=== PATIENT | female | born 1995 | race Caucasian/White ===

== ENCOUNTER 2024-05-01 10:27 | Emergency (ER) | payer BC ==
[~2024-05-01] VITALS: Ht 152.4 cm; Wt 63.5 kg
[~2024-05-01 10:27] MED LIST: WARF-57 PO
[2024-05-01 11:01] LABS: BASOPHILS # (AUTO) 0.02 K/uL (0.00-0.20); BASOPHILS % (AUTO) 0.5 % (0.0-5.0); EOSINOPHILS # (AUTO) 0.49 K/uL (0.00-0.70); EOSINOPHILS % (AUTO) 11.2 % (0.0-8.0); HEMATOCRIT 41.5 % (36-48); IMMATURE GRANULOCYTE ABSOLUTE 0.01 K/uL (0-1); LYMPHOCYTES # (AUTO) 1.2 K/uL (1.0-4.8); LYMPHOCYTES % (AUTO) 27.9 % (21.0-51.0); MEAN CORPUSCULAR HEMOGLOBIN 29.5 pg (27.0-33.0); MEAN CORPUSCULAR HGB CONC 33.7 g/dL (32.0-36.0); MEAN CORPUSCULAR VOLUME 87.6 fL (79-99); MONOCYTES # (AUTO) 0.5 K/uL (0.1-1.0); NEUTROPHILS # (AUTO) 2.2 K/uL (1.8-7.7); NEUTROPHILS % (AUTO) 49.2 % (40.0-77.0); PLATELET COUNT (AUTO) 256 K/uL (130-400); RED BLOOD CELL COUNT(AUTO) 4.74 MIL/uL (4.00-5.50); RED CELL DISTRIBUTION WIDTH 12.2 % (11.0-15.5); WHITE BLOOD COUNT (AUTO) 4.4 K/uL (4.8-10.8)
[2024-05-01 11:17] LABS: CREATININE 0.7 mg/dL (0.5-1.0); POTASSIUM 4.1 mmol/L (3.5-5.1)
[2024-05-01 11:56] LABS: PARTIAL THROMBOPLASTIN TIME 66.1 SEC (26.3-35.5)
[2024-05-01 12:27] LABS: INR 6.95 (0.85-1.15)
[2024-05-01 13:48] VITALS: BP 146/86; PULSE 88; RESP 16; O2SAT 97
== END 2024-05-01 13:49 | disposition home or self-care (01) ==
LOC: EDH 10:27
DX: R04.0 Epistaxis (principal); T45.515A Adverse effect of anticoagulants, initial encounter; Z88.1 Allergy status to other antibiotic agents; Z95.2 Presence of prosthetic heart valve; Y92.89 Other specified places as the place of occurrence of the external cause; Z98.890 Other specified postprocedural states
CPT/HCPCS: 36415; 80048; 85025; 85610; 85730

== ENCOUNTER 2024-05-30 06:44 | Day surgery (SDC) | payer BC ==
[2024-05-28 11:22] LABS: BASOPHILS # (AUTO) 0.03 K/uL (0.00-0.20); BASOPHILS % (AUTO) 0.6 % (0.0-5.0); EOSINOPHILS # (AUTO) 0.83 K/uL (0.00-0.70); EOSINOPHILS % (AUTO) 17.7 % (0.0-8.0); HEMATOCRIT 40.7 % (36-48); IMMATURE GRANULOCYTE ABSOLUTE 0.01 K/uL (0-1); LYMPHOCYTES # (AUTO) 1.1 K/uL (1.0-4.8); LYMPHOCYTES % (AUTO) 23.1 % (21.0-51.0); MEAN CORPUSCULAR HEMOGLOBIN 29.2 pg (27.0-33.0); MEAN CORPUSCULAR HGB CONC 32.7 g/dL (32.0-36.0); MEAN CORPUSCULAR VOLUME 89.3 fL (79-99); MONOCYTES # (AUTO) 0.3 K/uL (0.1-1.0); MONOCYTES % (AUTO) 6.8 % (3.0-13.0); NEUTROPHILS # (AUTO) 2.4 K/uL (1.8-7.7); NEUTROPHILS % (AUTO) 51.6 % (40.0-77.0); PLATELET COUNT (AUTO) 236 K/uL (130-400); RED BLOOD CELL COUNT(AUTO) 4.56 MIL/uL (4.00-5.50); RED CELL DISTRIBUTION WIDTH 12.9 % (11.0-15.5); WHITE BLOOD COUNT (AUTO) 4.7 K/uL (4.8-10.8)
[2024-05-28 11:43] LABS: INR 1.81 (0.85-1.15); PROTHROMBIN TIME 18.7 SEC (9.6-11.6)
[2024-05-28 11:44] LABS: PARTIAL THROMBOPLASTIN TIME 36.4 SEC (26.3-35.5)
[2024-05-28 12:52] VITALS: BP 126/83; PULSE 71; RESP 19
[~2024-05-30] VITALS: Ht 152.4 cm; Wt 64.5 kg
[2024-05-30] VITALS (17 sets, daily range): BP systolic 113–135; BP diastolic 76–86; PULSE 78–106; RESP 14–18
[~2024-05-30 06:44] MED LIST changes: +ALBU1.252 IH; -WARF-57 PO; +WARF2.5T85 PO
[2024-05-30] MEDS ORDERED: PROPOFOL 10 MG/ML 20ML VIAL IV ONE (07:27)
[2024-05-30] MEDS ORDERED: MIDAZOLAM HCL 1 MG/ML 2ML VIAL ONE (07:27)
[2024-05-30] MEDS ORDERED: ONDANSETRON 4MG INJ ONE (07:27)
[2024-05-30] MEDS ORDERED: ROCURONIUM BROMIDE 10MG/1ML 5ML VL ONE (07:28)
[2024-05-30] MEDS ORDERED: FENTANYL CITRATE PF 50 MCG/1 ML 2ML VIAL ONE (07:28)
[2024-05-30 07:38] LABS: INR 1.61 (0.85-1.15); PROTHROMBIN TIME 16.8 SEC (9.6-11.6)
[2024-05-30 07:40] LABS: PARTIAL THROMBOPLASTIN TIME 34.3 SEC (26.3-35.5)
[2024-05-30] MEDS ORDERED: KETAMINE 50MG/ML SYRINGE 50 MG/ML DISP.SYRIN ONE (07:40)
[2024-05-30] MEDS ORDERED: FERRIC SUBSULFATE ML ONE (07:41)
[2024-05-30] MEDS ORDERED: STRONG IODINE SOLN 14ML BOTTLE ONE (07:42)
[2024-05-30] MEDS ORDERED: VASOPRESSIN 20 UNITS/ML 1ML VIAL ONE (07:42)
[2024-05-30] MEDS ORDERED: LIDOCAINE 1%-EPI 1:100,000 20 ML VIAL ONE ×2 (07:42→08:11)
[2024-05-30] MEDS ORDERED: PHENYLEPHRINE HCL 10 MG/ML 1ML VIAL IV ONE (07:55)
[2024-05-30] MEDS ORDERED: DEXAMETHASONE SOD PHOSPHATE 10MG/ML 1ML VIAL ONE (08:08)
[2024-05-30] MEDS: LIDOCAINE 1%-EPI 1:100,000 20 ML VIAL IJ ONE (08:12)
[2024-05-30] MEDS ORDERED: NEOSTIGMINE METHYLSULFATE 1MG/ML IV ONE (08:24)
[2024-05-30] MEDS ORDERED: GLYCOPYRROLATE 0.2 MG/ML 5 ML VIAL ONE (08:24)
[2024-05-30] MEDS: LACTATED RINGERS 1000ML 1,000 ML IV ONE (08:35)
[2024-05-30] MEDS ORDERED: SUGAMMADEX SODIUM 200 MG/2 ML VIAL IV ONE (08:42)
== END 2024-05-30 10:25 | disposition home or self-care (01) ==
LOC: DAH 06:44
PROVIDERS: ATTEND Obstetrics & Gynecology
DX: R87.613 High grade squamous intraepithelial lesion on cytologic smear of cervix (HGSIL) (principal); N72 Inflammatory disease of cervix uteri; Z79.01 Long term (current) use of anticoagulants; J45.909 Unspecified asthma, uncomplicated; Z88.1 Allergy status to other antibiotic agents; Z79.899 Other long term (current) drug therapy
CPT/HCPCS: 84703; 85025; 85610 ×2; 85730 ×2; 36415 ×2; 57520; 88305; 88307; A6260; A4663 ×2; J7120; J3010; J3490 ×7; J1100; J2250; J2704; J2405; J2710; J2371; A4215; A4657; A4222; A4221; A4216; A4223 ×2

== ENCOUNTER 2024-06-07 15:10 | Emergency (ER) | payer BC ==
[~2024-06-07] VITALS: Ht 152.4 cm; Wt 64.0 kg
[2024-06-07 16:18] LABS: HEMATOCRIT 40.3 % (36-48); MEAN CORPUSCULAR HEMOGLOBIN 29.5 pg (27.0-33.0); MEAN CORPUSCULAR HGB CONC 33.3 g/dL (32.0-36.0); MEAN CORPUSCULAR VOLUME 88.8 fL (79-99); PLATELET COUNT (AUTO) 256 K/uL (130-400); RED BLOOD CELL COUNT(AUTO) 4.54 MIL/uL (4.00-5.50); RED CELL DISTRIBUTION WIDTH 12.5 % (11.0-15.5); WHITE BLOOD COUNT (AUTO) 7.2 K/uL (4.8-10.8)
[2024-06-07 16:22] LABS: BASOPHILS # (AUTO) 0.04 K/uL (0.00-0.20); BASOPHILS % (AUTO) 0.6 % (0.0-5.0); EOSINOPHILS # (AUTO) 0.43 K/uL (0.00-0.70); IMMATURE GRANULOCYTE ABSOLUTE 0.03 K/uL (0-1); LYMPHOCYTES # (AUTO) 0.4 K/uL (1.0-4.8); LYMPHOCYTES % (AUTO) 5.5 % (21.0-51.0); MONOCYTES # (AUTO) 0.8 K/uL (0.1-1.0); MONOCYTES % (AUTO) 11.5 % (3.0-13.0); NEUTROPHILS # (AUTO) 5.4 K/uL (1.8-7.7)
[2024-06-07] MEDS: acetaMINOPHEN 500 MG TABLET PO ONE (17:21)
[2024-06-07] MEDS: 0.9%NACL 1000ML 1,000 ML IV ONE (17:52)
[2024-06-07 18:09] VITALS: TEMP 99.4
[2024-06-07 19:30] VITALS: BP 122/67; PULSE 108; RESP 20; O2SAT 100
== END 2024-06-07 19:31 | disposition home or self-care (01) ==
LOC: EDH 15:10
DX: N93.9 Abnormal uterine and vaginal bleeding, unspecified (principal); J45.909 Unspecified asthma, uncomplicated; Z79.899 Other long term (current) drug therapy; Z88.1 Allergy status to other antibiotic agents; Z88.8 Allergy status to other drugs, medicaments and biological substances; Z98.890 Other specified postprocedural states
CPT/HCPCS: 99283; 85025; 86850; 86900; 86901; 86923; 36415; J7030

== ENCOUNTER 2024-06-12 06:29 | Observation (INO) | payer BC ==
[~2024-06-12] VITALS: Ht 172.7 cm; Wt 63.5 kg
[2024-06-12] VITALS (25 sets, daily range): BP systolic 89–127; BP diastolic 45–85; PULSE 17–135; RESP 15–20; TEMP 97.3–98.4; O2SAT 99
[2024-06-12 06:52] LABS: BASOPHILS # (AUTO) 0.03 K/uL (0.00-0.20); BASOPHILS % (AUTO) 0.2 % (0.0-5.0); EOSINOPHILS # (AUTO) 0.08 K/uL (0.00-0.70); EOSINOPHILS % (AUTO) 0.6 % (0.0-8.0); HEMATOCRIT 31.3 % (36-48); IMMATURE GRANULOCYTE ABSOLUTE 0.08 K/uL (0-1); LYMPHOCYTES # (AUTO) 1.5 K/uL (1.0-4.8); LYMPHOCYTES % (AUTO) 10.2 % (21.0-51.0); MEAN CORPUSCULAR HEMOGLOBIN 30.2 pg (27.0-33.0); MEAN CORPUSCULAR HGB CONC 33.9 g/dL (32.0-36.0); MEAN CORPUSCULAR VOLUME 89.2 fL (79-99); MONOCYTES # (AUTO) 0.8 K/uL (0.1-1.0); MONOCYTES % (AUTO) 5.3 % (3.0-13.0); NEUTROPHILS % (AUTO) 83.1 % (40.0-77.0); PLATELET COUNT (AUTO) 329 K/uL (130-400); RED BLOOD CELL COUNT(AUTO) 3.51 MIL/uL (4.00-5.50); RED CELL DISTRIBUTION WIDTH 12.7 % (11.0-15.5); WHITE BLOOD COUNT (AUTO) 14.5 K/uL (4.8-10.8)
[2024-06-12] MEDS: LACTATED RINGERS 1000ML 1,000 ML IV SCH ×2 (07:00)
[2024-06-12 07:07] LABS: ALBUMIN 3.5 g/dL (3.5-5.0); BILIRUBIN,TOTAL 0.5 mg/dL (0.2-1.0); TOTAL PROTEIN, SERUM 7.3 g/dL (6.0-8.3)
[2024-06-12 07:20] LABS: INR 2.54 (0.85-1.15); PROTHROMBIN TIME 25.6 SEC (9.6-11.6)
[2024-06-12] MEDS ORDERED: LIDOCAINE PF 100MG/5ML (2%) SYRINGE 5ML ONE (08:15)
[2024-06-12] MEDS ORDERED: dexaMETHasone SOD PHOSPHATE 10MG/ML 1ML VIAL ONE (08:15)
[2024-06-12] MEDS ORDERED: proPOFol 10 MG/ML 20ML VIAL IV ONE (08:16)
[2024-06-12] MEDS ORDERED: SUCCINYLCHOLINE CHLORIDE 20 MG/ML 10 ML VIAL ONE (08:16)
[2024-06-12] MEDS ORDERED: GLYCOPYRROLATE 0.2 MG/ML 5 ML VIAL ONE (08:16)
[2024-06-12] MEDS ORDERED: rocuRONium bROMide 10MG/1ML 5ML VL ONE (08:16)
[2024-06-12] MEDS ORDERED: NEOSTIGMINE METHYLSULFATE 1MG/ML IV ONE (08:16)
[2024-06-12] MEDS ORDERED: ONDANSETRON 4MG INJ ONE (08:16)
[2024-06-12] MEDS ORDERED: MIDAZOLAM HCL 1 MG/ML 2ML VIAL ONE (08:16)
[2024-06-12] MEDS ORDERED: FENTanyl CITRate PF 50 MCG/1 ML 2ML VIAL ONE (08:17)
[2024-06-12] MEDS ORDERED: ALBUMIN (HUMAN) 5% 500 ML IV ONE (08:27)
[2024-06-12] MEDS ORDERED: ketaMINE 50MG/ML SYRINGE 50 MG/ML DISP.SYRIN ONE (08:27)
[2024-06-12 13:49] LABS: HEMATOCRIT 25.7 % (36-48); MEAN CORPUSCULAR HEMOGLOBIN 29.3 pg (27.0-33.0); MEAN CORPUSCULAR HGB CONC 33.1 g/dL (32.0-36.0); MEAN CORPUSCULAR VOLUME 88.6 fL (79-99); RED BLOOD CELL COUNT(AUTO) 2.9 MIL/uL (4.00-5.50); RED CELL DISTRIBUTION WIDTH 12.7 % (11.0-15.5); WHITE BLOOD COUNT (AUTO) 6.9 K/uL (4.8-10.8)
[2024-06-13] VITALS (7 sets, daily range): BP systolic 98–119; BP diastolic 63–77; PULSE 75–112; RESP 12–20; TEMP 97.8–98.5
[2024-06-13 06:53] LABS: EOSINOPHILS # (AUTO) 0.01 K/uL (0.00-0.70); EOSINOPHILS % (AUTO) 0.2 % (0.0-8.0); HEMATOCRIT 24.5 % (36-48); IMMATURE GRANULOCYTE ABSOLUTE 0.03 K/uL (0-1); LYMPHOCYTES % (AUTO) 15.8 % (21.0-51.0); MEAN CORPUSCULAR HEMOGLOBIN 29.5 pg (27.0-33.0); MEAN CORPUSCULAR HGB CONC 33.1 g/dL (32.0-36.0); MEAN CORPUSCULAR VOLUME 89.1 fL (79-99); MONOCYTES # (AUTO) 0.5 K/uL (0.1-1.0); MONOCYTES % (AUTO) 7.1 % (3.0-13.0); NEUTROPHILS % (AUTO) 76.4 % (40.0-77.0); PLATELET COUNT (AUTO) 220 K/uL (130-400); RED BLOOD CELL COUNT(AUTO) 2.75 MIL/uL (4.00-5.50); RED CELL DISTRIBUTION WIDTH 12.8 % (11.0-15.5); WHITE BLOOD COUNT (AUTO) 6.5 K/uL (4.8-10.8)
[2024-06-13] MEDS: acetaMINOPHEN 325 MG TAB PO PRN (17:51)
[2024-06-14 03:23] VITALS: BP 112/74; PULSE 76; RESP 20; TEMP 97.5
[2024-06-14 07:20] LABS: BASOPHILS # (AUTO) 0.03 K/uL (0.00-0.20); BASOPHILS % (AUTO) 0.6 % (0.0-5.0); EOSINOPHILS # (AUTO) 0.12 K/uL (0.00-0.70); EOSINOPHILS % (AUTO) 2.3 % (0.0-8.0); HEMATOCRIT 35.1 % (36-48); IMMATURE GRANULOCYTE ABSOLUTE 0.09 K/uL (0-1); LYMPHOCYTES # (AUTO) 1.9 K/uL (1.0-4.8); LYMPHOCYTES % (AUTO) 36.5 % (21.0-51.0); MEAN CORPUSCULAR HEMOGLOBIN 26.6 pg (27.0-33.0); MEAN CORPUSCULAR VOLUME 80.5 fL (79-99); MONOCYTES # (AUTO) 0.4 K/uL (0.1-1.0); NEUTROPHILS # (AUTO) 2.7 K/uL (1.8-7.7); NEUTROPHILS % (AUTO) 50.9 % (40.0-77.0); PLATELET COUNT (AUTO) 232 K/uL (130-400); RED BLOOD CELL COUNT(AUTO) 4.36 MIL/uL (4.00-5.50); WHITE BLOOD COUNT (AUTO) 5.2 K/uL (4.8-10.8)
[2024-06-14 07:30] VITALS: BP 118/77; PULSE 85; RESP 18; TEMP 98.2
== END 2024-06-14 09:00 | disposition home or self-care (01) ==
LOC: EDH 06:29 → EDHIP 09:00 → WSH 10:15
PROVIDERS: ADMIT Obstetrics & Gynecology; ATTEND Obstetrics & Gynecology
DX: N93.9 Abnormal uterine and vaginal bleeding, unspecified (principal); R10.2 Pelvic and perineal pain; N99.820 Postprocedural hemorrhage of a genitourinary system organ or structure following a genitourinary system procedure; S80.02XA Contusion of left knee, initial encounter; S80.01XA Contusion of right knee, initial encounter; I10 Essential (primary) hypertension; R61 Generalized hyperhidrosis; D64.9 Anemia, unspecified; R53.1 Weakness; J45.909 Unspecified asthma, uncomplicated; Z88.1 Allergy status to other antibiotic agents; Z87.410 Personal history of cervical dysplasia; Z79.01 Long term (current) use of anticoagulants; W19.XXXA Unspecified fall, initial encounter; Y93.89 Activity, other specified; Y92.89 Other specified places as the place of occurrence of the external cause; Y99.8 Other external cause status
CPT/HCPCS: 57180; 99284; 80053; 84703; 85025 ×3; 85027; 85610; 85730; 86850; 86900; 86901; 86923; 83605 ×2; 36415 ×3; 36430; G0378 ×42; A4606; A4344; P9045; J7120 ×2; J3010; J1100; J0330; J3490 ×3; J2001; J2250; J2704; J2405; J2710; A4649; A4930; P9016 ×2